=== PATIENT | male | born 2000 | race Caucasian/White ===

== ENCOUNTER 2021-03-11 19:33 | Emergency (ER) | payer OTHER ==
[~2021-03-11] VITALS: Ht 177.8 cm; Wt 65.8 kg
== END 2021-03-11 22:53 | disposition home or self-care (01) ==
LOC: ER 19:33 → EMR PED 19:33
DX: B34.9 Viral infection, unspecified (principal); Z11.52 Encounter for screening for COVID-19

== ENCOUNTER 2022-05-23 00:43 | Emergency (ER) | payer OTHER ==
[~2022-05-23] VITALS: Ht 182.9 cm; Wt 72.6 kg
[2022-05-23] MEDS ORDERED: INTESTINEX680 M1 PO (06:01)
[2022-05-23] MEDS ORDERED: DICLOFENAC POTA50 MG PO (06:01)
[2022-05-23] MEDS ORDERED: AMOX-CLAV 875-1 EACH PO (06:01)
== END 2022-05-23 06:04 | disposition home or self-care (01) ==
LOC: ER 00:43
DX: J02.0 Streptococcal pharyngitis (principal); R50.9 Fever, unspecified

== ENCOUNTER 2022-05-25 06:13 | Emergency (ER) | payer OTHER ==
[~2022-05-25] VITALS: Ht 182.9 cm; Wt 68.0 kg
[~2022-05-25 06:13] MED LIST: AMOX-CLAV 875-1 EACH PO; DICLOFENAC POTA50 MG PO; INTESTINEX680 M1 PO
== END 2022-05-25 13:20 | disposition home or self-care (01) ==
LOC: ER 06:13
DX: J02.9 Acute pharyngitis, unspecified (principal); Z20.822 Contact with and (suspected) exposure to COVID-19

== ENCOUNTER 2023-04-15 09:50 | Emergency (ER) | payer OTHER ==
[~2023-04-15] VITALS: Ht 182.9 cm; Wt 71.2 kg
[~2023-04-15 09:50] MED LIST changes: +ACETAMINOPHEN650 M2
== END 2023-04-15 14:21 | disposition home or self-care (01) ==
LOC: ER 09:50
DX: J06.9 Acute upper respiratory infection, unspecified (principal)